=== PATIENT | female | born 1940 | race Caucasian/White ===

== ENCOUNTER 2021-06-24 11:43 | Emergency (ER) | payer MEDICARE, SELFPAY ==
[2021-06-24 11:50] VITALS: BP 132/52; PULSE 63; RESP 14; TEMP 36.9; O2SAT 99
[2021-06-24 12:04] VITALS: BP 132/52; PULSE 63; RESP 14; TEMP 36.9; O2SAT 99
--- NOTE | 2021-06-24 12:54 | ED.URI ---
HPI - URI/Sore Throat General Chief Complaint: Upper Respiratory Infection Stated Complaint: Sinus Congestion/Sore Throat Time Seen by Provider: 06/24/21 12:40 Source: patient and RN notes reviewed Mode of arrival: ambulatory Limitations: no limitations History of Present Illness HPI Narrative: Patient presents today complaining of a 5-day history of nasal congestion, cough with clear sputum, copious postnasal drainage, and ear clogging. She presents today complaining of choking on her postnasal drainage this morning because it was so thick. Denies fever, shortness of breath. She has been using cough drops and Zyrtec. MD elicited complaint: cough and nasal congestion Related Data Home Medications Medication Instructions Recorded Confirmed ibandronate 150 mg PO MONTHLY 06/24/21 06/24/21 latanoprost 1 drp EACH EYE QPM 06/24/21 06/24/21 onabotulinumtoxinA [Botox] 200 unit IM [id number] 06/24/21 06/24/21 rosuvastatin 10 mg PO DAILY 06/24/21 06/24/21 Allergies Allergy/AdvReac Type Severity Reaction Status Date / Time Penicillins Allergy Rash Verified 06/24/21 12:00 Review of Systems Review of Systems: CONSTITUTIONAL: Denies body aches, fever, chills, or sweats. EYES: Denies visual changes, redness, or discharge. ENT: Denies rhinorrhea,sore throat, or otalgia.+ Congestion, postnasal drip, ear clogging CARDIOVASCULAR: Denies chest pain, palpitations, or edema. RESPIRATORY: Denies dyspnea.+ Cough GASTROINTESTINAL: Denies abdominal pain, nausea, vomiting, or diarrhea. GENITOURINARY: Denies dysuria or hematuria. SKIN: Denies rash, itching, or wounds. MUSCULOSKELETAL: Denies back pain, joint pain, or myalgia. NEUROLOGIC: Denies headache, numbness, tingling, or weakness. PSYCH: Denies depression or anxiety. [facility] Past Medical History Medical History (Updated 06/24/21 @ 12:58 by Nita Wood, [facility], ) High cholesterol Comments At time of signature, I have reviewed and agree with nursing past medical, surgical, social and family history unless otherwise noted. Please see nursing chart for further information. There is no relevant family history pertinent to the presenting complaint Exam Narrative: GENERAL: Well-appearing, well-nourished, and in no acute distress. HEAD: Normocephalic, atraumatic. EYES: EOMI. No redness or drainage. Conjunctivae normal. ENT: Mucous membranes pink and moist. Nares congested. No rhinorrhea. Bilateral clear middle ear effusions. Throat normal. Uvula midline. NECK: Normal AROM. Supple. No lymphadenopathy. CHEST: No respiratory distress. Clear to auscultation. HEART: Regular rate and rhythm. No murmur appreciated. Normal peripheral pulses. EXTREMITIES: Normal range of motion. No edema. SKIN: Warm, dry, no rash. Capillary refill normal. Normal skin turgor. NEURO: No focal deficits. Alert and oriented x3. Gait steady. PSYCH: Normal affect. No signs of depression or anxiety. Course Vital Signs Vital signs: Vital Signs Temperature 98.4 F 06/24/21 11:50 Pulse Rate 63 06/24/21 11:50 Respiratory Rate 14 06/24/21 11:50 Blood Pressure 132/52 L 06/24/21 11:50 Pulse Oximetry 99 06/24/21 11:50 Temperature 98.4 F 06/24/21 12:04 Pulse Rate 63 06/24/21 12:04 Respiratory Rate 14 06/24/21 12:04 Blood Pressure 132/52 L 06/24/21 12:04 Pulse Oximetry 99 06/24/21 12:04 Reviewed. Pt has been instructed to follow up with her PCP regarding her elevated blood pressure today. MDM - URI/Sore Throat Differential Diagnosis Differential diagnosis: Likely upper respiratory infection, sinusitis, viral infection and bronchitis Critical Care Time Critical Care Time Critical Care Time: No Discharge Plan Discharge Clinical Impression: Upper respiratory infection Qualifiers: URI type: unspecified URI Qualified Code(s): J06.9 - Acute upper respiratory infection, unspecified Patient Disposition: Home, Self-Care Condition: Stable Instructions: Upper Resp
== END 2021-06-24 13:02 | disposition home or self-care (01) ==
PROVIDERS: Emergency Provider Nurse Practitioner; PCP Family Medicine
DX: J06.9 Acute upper respiratory infection, unspecified (principal)
CPT/HCPCS: 99202; G0463